=== PATIENT | female | born 1985 | race Caucasian/White ===

== ENCOUNTER 2022-10-25 13:26 | Emergency (ER) | payer BC ==
[2022-10-25 13:34] VITALS: BP 113/72
--- NOTE | 2022-10-25 14:01 | ED Physician Documentation ---
PD HPI LOWER EXT INJURY - Stated complaint Stated Complaint: R LEG PX - Chief complaint Chief Complaint: Trauma Ext - History obtained from History obtained from: Patient - Additional information Additional information: She was walking for [employer] and slipped in the mud. She had a hyper plantarflexion of the right foot with persistent ankle pain but declines pain medication for. She is able to walk but she feels like flexion or extension of the ankle while walking is very painful. No other injuries. PD PAST MEDICAL HISTORY - Present Medications Home Medications: Ambulatory Orders Medication Instructions Recorded Confirmed Sertraline HCl 100 mg PO DAILY 10/25/22 10/25/22 - Allergies Allergies/Adverse Reactions: Allergies Allergy/AdvReac Type Severity Reaction Status Date / Time No Known Drug Allergies Allergy Verified 10/25/22 13:34 PD ED PE NORMAL - Vitals Vital signs reviewed: Yes - General General: Alert and oriented X 3, No acute distress - Neck Neck: Supple, no meningeal sign, No bony TTP - Extremities Extremities: Other (Tender and swollen over the right lateral malleolus and ATFL without other foot, ankle, or proximal fibular tenderness.) - Neuro Neuro: Alert and oriented X 3, Normal speech Results - Vitals Vitals: Vital Signs - 24 hr 10/25/22 13:31 Temperature 36.5 C Heart Rate 77 Respiratory 16 Rate Blood Pressure 113/72 O2 Saturation 97 Oxygen O2 Source Room air - Rads (name of study) Three-view x-ray of the right ankle was Normal Radiology: Final report received, EMP read indepedently PD Medical Decision Making - ED course ED course: 37-year-old woman with right ankle sprain, negative x-rays, given close return precautions and placed in a boot for comfort. Departure - Departure Disposition: 01 Home, Self Care Clinical Impression: Right ankle sprain Condition: Good Instructions: ED Sprain Ankle W X Ray Comments: Recheck with your physician if not better in a week. Return for new or worsening symptoms. You may walk and bear weight as tolerated. But generally elevation is helpful to. You can take Tylenol and/or ibuprofen per package instructions as needed for pain. Discharge Date/Time: 10/25/22 14:36
--- NOTE | 2022-10-25 15:39 | XRAY Report ---
PROCEDURE: Ankle 3 View RT INDICATIONS: Trauma TECHNIQUE: 3 views of the ankle were acquired. COMPARISON: None FINDINGS: Bones: No fractures or dislocations. Ankle mortise is normally aligned. No suspicious bony lesions . Soft tissues: No tibiotalar joint effusion. Achilles tendon appears normal. IMPRESSION: Unremarkable right ankle radiographs Reviewed by: Luis Hussein MD on 10/25/2022 2:37 PM [place] Approved by: Luis Hussein MD on 10/25/2022 2:37 PM [place] Station ID: [id number]
== END 2022-10-25 14:36 | disposition home or self-care (01) ==
LOC: ED 13:26
DX: S93.401A Sprain of unspecified ligament of right ankle, initial encounter (principal); X50.1XXA Overexertion from prolonged static or awkward postures, initial encounter; Y93.01 Activity, walking, marching and hiking
CPT/HCPCS: 99283